=== PATIENT | female | born 1935 | race Caucasian/White ===

== ENCOUNTER 2020-02-18 13:40 | Outpatient (CLI) | payer MEDICARE, MEDICAID, SELFPAY ==
--- NOTE | ~2020-02-18 | DEXA_ITS ---
Bone Density Report Name: Lisa Salcedo Age: 85 Sex: Female Ethnicity: White Date of : 1935 Indication: postmenopausal; prior fracture; Referring Provider: ADAM, OBEY Felix Study: Bone densitometry was performed. Exam Date: February 18, 2020 Accession number: [id number] Bone Density: Region BMD T-score Z-score Classification AP Spine (L1-L4) 0.977 -0.6 2.2 Normal Femoral Neck (Left) 0.488 -3.3 -0.8 Osteoporosis Total Hip (Left) 0.760 -1.5 0.7 Osteopenia Total Hip Bilateral Avg 0.763 -1.5 0.8 Osteopenia Femoral Neck (Right) 0.621 -2.0 0.4 Osteopenia Total Hip (Right) 0.766 -1.4 0.8 Osteopenia World Health Organization criteria for BMD impression classify patients as: Normal (T-score at or above -1.0), Osteopenia (T-score between -1.0 and -2.5), or Osteoporosis (T-score at or below -2.5). 10-year Fracture Risk: FRAX not reported because: Some T-score for Spine Total or Hip Total or Femoral Neck at or below -2.5 Clinical Information Provided by Patient: Has had a low trauma fracture Has used the following medications: Vitamin D, Calcium Patient maximum height was 59 Menopause Age: 50 No regular weight bearing exercise Onset of menses at age 15 Number of children 6 Impression: The patient has established osteoporosis, based on the Left Femoral Neck T-score and the existence of a prior fracture. The patient has risk factors, including: previous fracture. Discussion: HIGH RISK OF FRACTURE. BONE DENSITY IS UNDESIRABLY LOW AT ONE OR MORE SKELETAL SITES, CONSISTENT WITH POSTMENOPAUSAL OSTEOPOROSIS. This patient's lowest T-score, in a patient who has previously fractured, meets the World Health Organization's (WHO) criteria for severe osteoporosis. In untreated patients, the risk of osteoporotic fracture increases approximately two-fold for each 1.0 SD decrease in T-score. Low bone density is not the only risk factor for fracture; also consider factors such as patient's age, frailty or poor health, risk of falling, risk of injury, previous osteoporotic fracture, family history of osteoporosis, cigarette smoking, low body weight, etc. Not everyone with low bone mineral density has osteoporosis; osteomalacia and other metabolic bone disorders should also be considered. Patients who have osteoporosis should be evaluated for specific diseases and conditions (secondary causes) that may cause or contribute to bone loss. The [place] [employer]ocrinologists (AACE) and National Osteoporosis Foundation (NOF) recommend pharmacologic intervention for all postmenopausal women whose T-score is in this range. The patient should follow a healthful lifestyle (good nutrition with adequate calcium and vitamin D, and appropriate weight-bearing exercise). Follow-Up: Consider a repeat BMD and Vertebral Fracture Assess
--- NOTE | ~2020-02-18 | MM_ITS ---
EXAMINATION: MM screening salome BI w servando HISTORY: Screening mammogram TECHNIQUE: Craniocaudal and mediolateral oblique 3-D tomosynthesis images were obtained and synthetic 2-D images were generated. CAD analysis was submitted and interpreted. COMPARISON: No prior mammogram is available for comparison at this institution. BREAST PARENCHYMAL COMPOSITION: There are scattered areas of fibroglandular density. FINDINGS: There are benign bilateral breast calcifications. There is no evidence of suspicious mass, calcification, or architectural distortion to suggest malignancy in either breast. There has been no suspicious interval change. IMPRESSION: 1. No mammographic evidence of malignancy. 2. Recommend routine screening mammography in one year. BI-RADS Category 2: Benign finding(s). Reviewed, dictated and finalized at location A.
== END 2020-02-18 13:41 | disposition home or self-care (01) ==
LOC: ANHIMG 13:42
PROVIDERS: PCP Internal Medicine; Visit Provider Internal Medicine
DX: Z12.31 Encounter for screening mammogram for malignant neoplasm of breast (principal); Z78.0 Asymptomatic menopausal state; M85.89 Other specified disorders of bone density and structure, multiple sites; M81.0 Age-related osteoporosis without current pathological fracture
CPT/HCPCS: 77063; 77067; 77080

== ENCOUNTER 2023-04-25 16:32 | Emergency (ER) | payer MEDICARE, MEDICAID, SELFPAY ==
--- NOTE | ~2023-04-25 | XR_ITS ---
EXAMINATION: XR chest 2V DATE: 04/25/2023 17:55 INDICATION: Right-sided chest pain TECHNIQUE: frontal and lateral views of the chest were obtained. COMPARISON: None FINDINGS: Mild increased interstitial pattern in both lungs most prominent in the right upper lung zone and lef t mid to lower lung zone suggesting mild pulmonary edema. Increased airspace opacities in the right s uprahilar region, unclear whether representing from the lung or the right hilum. Calcified lingular n odule consistent with old granulomatous disease. No pleural effusion or pneumothorax. Heart size is w ithin normal limits for AP technique. Mild thoracic spondylosis. IMPRESSION: 1. . Opacities in the right suprahilar region, uncertain whether representing the lung or from the ri ght hilum with differential including pneumonia, atelectasis, malignancy or reactive lymphadenopathy. Consider further evaluation with chest CT, preferably with contrast. 2. Somewhat heterogeneous bilateral mild increased interstitial pattern consistent with mild pulmonar y edema. Reviewed, dictated and finalized at location A. IMPRESSION: 1. . Opacities in the right suprahilar region, uncertain whether representing t he lung or from the right hilum with differential including pneumonia, atelecta sis, malignancy or reactive lymphadenopathy. Consider further evaluation with c hest CT, preferably with contrast. 2. Somewhat heterogeneous bilateral mild increased interstitial pattern consist ent with mild pulmonary edema.
--- NOTE | ~2023-04-25 | CT_ITS ---
EXAMINATION: CTA chest PE protocol DATE: 04/25/2023 20:45 INDICATION: R chest pain, pleuritic TECHNIQUE: Computed tomography angiography (CTA) of the chest was performed with 100 mL Omnipaque-350 intravenous contrast timed to evaluate the pulmonary arteries. Coronal maximum intensity projection 3D-reconstructions were created by the technologist. The dose-length product (DLP) was 677.76 mGy-cm. Automated exposure control and iterative reconstruction technique were employed. COMPARISON: X-ray chest, same date. FINDINGS: Lung parenchyma and airways: Calcified left lower lobe and right middle lobe granulomas. Mosaic atten uation. Bibasilar scar/atelectasis. Pleura: Unremarkable. Thoracic inlet, axillae and chest wall: Unremarkable. Thoracic aorta: Ascending aortic ectasia. Mild arch calcification. Mediastinum: Dilated central pulmonary arteries as can be seen with pulmonary arterial hypertension. Right hilar and right paratracheal lymphadenopathy. Heart and pericardium: Cardiomegaly. Coronary artery calcifications: Moderate. Upper abdomen: Cirrhotic liver changes. Hypodense left liver lobe lesion with the suggestion of perip heral nodular enhancement that would be typical of a hemangioma. Bilateral renal atrophy. Fatty repla cement of the pancreas. Bones: No acute osseous finding. Pulmonary arteries: Study quality: Adequate. No pulmonary emboli detected. IMPRESSION: No CT evidence of acute pulmonary embolus. Mosaic attenuation which can be seen with asthma, bronchiolitis obliterans, hypersensitivity pneumoni tis, and chronic thromboembolic disease. Right hilar and mediastinal lymphadenopathy. Reviewed, dictated and finalized at location K. IMPRESSION: No CT evidence of acute pulmonary embolus. Mosaic attenuation which can be seen with asthma, bronchiolitis obliterans, hyp ersensitivity pneumonitis, and chronic thromboembolic disease. Right hilar and mediastinal lymphadenopathy.
--- NOTE | 2023-04-25 16:33 | ECG_ITS ---
Measurements Intervals [place] Rate: 79 P: 83 LA: 177 QRS: -31 QRSD: 92 T: 52 QT: 384 QTc: 442 Interpretive Statements SINUS RHYTHM LEFT AXIS DEVIATION LOW QRS VOLTAGE IN PRECORDIAL LEADS INCOMPLETE RIGHT BUNDLE BRANCH BLOCK POOR R WAVE PROGRESSION, ANTERIOR LEADS BASELINE ARTIFACT- I, II, III, AVR, AVL, AVF BORDERLINE ECG NO PREVIOUS ECG AVAILABLE FOR COMPARISON Electronically Signed On 04-25-2023 20:08:35 CDT by Deon Lucio D.O.
[2023-04-25 16:35] VITALS: BP 140/86; PULSE 82; RESP 16; TEMP 36.5; O2SAT 95
[2023-04-25 17:09] LABS: Basophils Percent Auto 0.3 % (0.2-1.2); Eosinophils Percent Auto 0.6 % (0-4.4); Hematocrit 34.4 % (37.0-47.0); Hemoglobin 10.9 g/dL (12.0-15.0); Immature Granulocyte Absolute 0.02 K/mm3 (0.00-0.031); Immature Granulocyte Percent A 0.3 % (0-0.5); Lymphocytes Percent Auto 32.6 % (18.3-44.2); Mean Corpuscular HGB Conc 31.7 g/dl (32-36); Mean Corpuscular Hemoglobin 30.8 pg (26-34); Mean Corpuscular Volume 97.2 fl (80-100); Mean Platelet Volume 12.1 fl (7.4-10.4); Monocytes Absolute Auto 0.6 K/mm3 (0.1-0.6); Neutrophils Absolute Auto 3.7 K/mm3 (1.3-6.7); Neutrophils Percent Auto 57.2 % (45.5-73.1); Platelet Count Result 156 k/mm3 (150-375); Red Blood Count 3.54 M/mm3 (4.2-5.4); Red Cell Distribution Width 14.7 % (11.5-14.5); White Blood Count 6.5 K/mm3 (4.5-10.0)
[2023-04-25 17:24] LABS: Alanine Aminotransferase 19 U/L (6-35); Albumin Level 4.2 g/dL (3.5-5.1); Alkaline Phosphatase 95 U/L (38-126); Anion Gap 8 mmol/L (8-16); Aspartate Amino Transferase 36 U/L (14-36); Bilirubin,Total 0.5 mg/dL (0.2-1.3); Blood Urea Nitrogen 29 mg/dL (7-17); Calcium 9.1 mg/dL (8.4-10.2); Carbon Dioxide 27 mmol/L (22-30); Chloride 103 mmol/L (98-107); Estimated Glomerular Filt Rate 33; Glucose 105 mg/dL (65-110); Lipase 20 U/L (23-300); Potassium 4.3 mmol/L (3.4-5.0); Prothrombin Time 14.1 Seconds (11.1-14.7); Sodium 138 mmol/L (137-145)
[2023-04-25 17:25] LABS: Partial Thromboplastin Time 28.2 SECONDS (22.3-36.8)
[2023-04-25 17:35] LABS: Troponin I < 0.012 ng/mL (0.000-0.034)
--- NOTE | 2023-04-25 20:11 | ED.CHESTPAIN ---
HPI - Chest Pain General Chief Complaint: Chest Pain Stated Complaint: cp right side Time Seen by Provider: 04/25/23 19:56 Source: patient and family Limitations: no limitations History of Present Illness HPI narrative: Patient is an 88-year-old female present to the emergency department accompanied by 2 of her daughters for right chest discomfort for the past 2 to 3 weeks. Patient describes the pain as feeling like a heartbeat, it is intermittent, worse when she coughs or sneezes or yawns, has not noticed anything making the pain better, denies radiation of the pain, denies any history of this pain in the past, notes that she tried Tums and Advil without any relief, describes the pain as mild. Patient admits to mild associated shortness of breath. Patient denies history of blood clots or lower extremity swelling. Patient denies diaphoresis, nausea, vomiting, abdominal pain, dysuria, hematuria, rash, numbness, weakness, diarrhea, melena, hematochezia. Patient denies any history of heart disease, diabetes mellitus, hypertension. Patient has she been taking her medications as prescribed. Patient admits to her urine being slightly darker as of late. Patient denies any pain currently. Related Data Allergies Allergy/AdvReac Type Severity Reaction Status Date / Time No Known Allergies Allergy Verified 04/25/23 20:43 Review of Systems Review of Systems: A 10 system review of systems was completed on the patient and is negative except for what is stated in the HPI. Nursing and ancillary documentation was reviewed. PMFSH Comments At time of signature, I have reviewed and agree with nursing past medical, surgical, social and family history unless otherwise noted. Please see the nursing chart for further information. There is no relevant family history pertinent to the presenting complaint. Exam Narrative: CONST: No acute distress. Well nourished. Obese. HENMT: Head is normocephalic and atraumatic. Tacky mucous membranes. No posterior oropharynx erythema. EYES: No conjunctival icterus, injection, or pallor. PERRL. NECK: No meningeal signs. RESP: Able to speak in full sentences. Normal respiratory effort. CTAB. CARDIO: Regular rate. Regular rhythm. 2+ DP and radial pulses bilaterally. GI: Nondistended. No tenderness to palpation. Soft. : No CVA tenderness to palpation. SKIN: No rashes or lesions noted on exposed skin. NEURO: Oriented x3. Moves all extremities. EXTREM/MSK: No pedal edema. Mild right anterolateral lateral chest wall tenderness palpation without overlying skin changes, no crepitus, no palpable deformities. PSYCH: Normal affect. Course Vital Signs Vital signs: Vital Signs Temperature 97.7 F 04/25/23 16:35 Pulse Rate 82 04/25/23 16:35 Respiratory Rate 16 04/25/23 16:35 Blood Pressure 140/86 04/25/23 16:35 Pulse Oximetry 95 04/25/23 16:35 Temperature 97.7 F 04/25/23 16:35 Pulse Rate 82 04/25/23 16:35 Respiratory Rate 16 04/25/23 16:35 Blood Pressure 140/86 04/25/23 16:35 Pulse Oximetry 95 04/25/23 16:35 MDM - Chest Pain MDM Narrative Medical decision making narrative: Patient presents with the above complaint. Initial vitals are remarkable for no significant abnormalities. Patient appears in no acute distress. Physical examination notable for as noted above. Plan discussed: Laboratory analysis, EKG, chest x-ray. Patient ordered an aspirin 325 mg p.o. and placed on cardiac monitoring. Results reviewed with family and patient. Will obtain a CTA of the chest for further evaluation of abnormal chest x-ray findings. The patient has remained stable throughout the entire ED visit. Counseled patient regarding diagnostic results and potential diagnosis. Anticipatory guidance provided. Patient instructed to follow up with PCP within 2-3 days. Patient counseled on: false reassurance from an emergency department evaluation; no current evidence of a medical emerg
[2023-04-25 20:29] LABS: Troponin I < 0.012 ng/mL (0.000-0.034)
[2023-04-25 21:10] LABS: Influenza A QL RT-PCR Negative (Negative); Influenza B QL RT-PCR Negative (Negative); SARS-CoV-2 RNA PCR Negative (Negative)
[2023-04-25 22:28] LABS: Appearance Urine Clear (Clear); Bacteria Urine None Seen /hpf; Bilirubin Urine Negative (Negative); Blood Urine Negative (Negative); Color Urine Yellow (Yellow); Glucose Urine UA Negative (Negative); Ketones Urine Negative (Negative); Leukocyte Esterase Ur 1+ LEU/UL (Negative); Need Manual Microscopic Reviewed; Nitrate Urine Negative (Negative); Non Pathogenic Casts 0-2; Protein Urine Negative (Negative); RBC Urine 0-2 /hpf (0-2); Specific Grav Ur 1.021 (1.001-1.035); Squamous Epithelial Cell Urine Occasional /hpf (Few); Urobilinogen Urine 0.2 mg/dL (<2.0); WBC Urine 0-5 /hpf
[2023-04-25 22:29] LABS: Add Urine Microscopic? YES
== END 2023-04-25 21:58 | disposition home or self-care (01) ==
PROVIDERS: Emergency Medicine; Emergency Provider Student in an Organized Health Care Education/Training Program; PCP Internal Medicine
DX: M94.0 Chondrocostal junction syndrome [Tietze] (principal); R07.89 Other chest pain; Z20.822 Contact with and (suspected) exposure to COVID-19; I45.10 Unspecified right bundle-branch block; R94.31 Abnormal electrocardiogram [ECG] [EKG]; R91.8 Other nonspecific abnormal finding of lung field
CPT/HCPCS: 36415; 71046; 71275; 80053; 81001; 83690; 84484; 85025; 85610; 85730; 87636; 93005; 99284; Q9967

== ENCOUNTER 2023-10-09 00:45 | Emergency (ER) | payer MEDICARE, MEDICAID, SELFPAY ==
[2023-10-09] VITALS (7 sets, daily range): BP systolic 142–173; BP diastolic 73–92; PULSE 51–75; RESP 12–21; TEMP 36.8; O2SAT 94–99
--- NOTE | ~2023-10-09 | CT_ITS ---
Noncontrast CT scan of the cervical spine Technique: Multiple contiguous axial [address] images of the cervical spine were obtained and rec onstructed in 2D sagittal and coronal planes on the acquisition scanner. Dose reduction technique was used on this scan by utilizing automated exposure control, adjustment of the mA and/or kV according to patient size. The dose-length product (DLP) was 405.40 mGy-cm. Clinical History: Pain Findings: No fractures or dislocations. There is mild reversal of the normal cervical lordosis. Ther e is moderate degenerative disc narrowing at C4-C5, and mild degenerative disc narrowing at C5-C6. Th ere is probable mild right neural foraminal narrowing at C2-C3, the right facet arthropathy present. There is probable bilateral neural foraminal narrowing, right worse than left, at C4-C5, with mild di sc osteophyte complex. No prevertebral soft tissue swelling. Impression: No fracture or subluxation of the cervical spine. Mild degenerative spondylosis, as above. Reviewed, dictated and finalized at [facility]. ERCIAL PORTFOLIO MANAGER Impression: No fracture or subluxation of the cervical spine. Mild degenerative spondylosis, as above.
--- NOTE | ~2023-10-09 | CT_ITS ---
CT of the Abdomen and Pelvis: Indication: Abdominal pain Technique: 2.5 mm axial scans were obtained through the abdomen and pelvis following intravenous adm inistration of 100 cc of Omnipaque 350. Dose reduction technique was used on this scan by utilizing a utomated exposure control and iterative reconstruction technique. The dose-length product (DLP) was 1 056.64 mGy-cm. Findings: Scans through the lung bases are unremarkable. Nodular contour of liver noted. Tiny gallstone present. The spleen, pancreas, and adrenal glands are within normal limits. There is mild bilateral hydronephrosis. There are atherosclerotic calcification s of the aorta. No lymphadenopathy. No bowel obstruction or bowel wall thickening. There is no evidence to suggest acute appendicitis. Images through the pelvis were performed. Urinary bladder distended, but otherwise unremarkable. 3 cm simple appearing cystic right adnexal mass present.. No ascites. Impression: Probable cirrhotic change of the liver. Cholelithiasis. Mild bilateral hydronephrosis with distended urinary bladder. 3 cm simple appearing cystic right adnexal lesion. Annual follow-up ultrasound advised. Reviewed, dictated and finalized at location M. THERAPIST Impression: Probable cirrhotic change of the liver. Cholelithiasis. Mild bilateral hydronephrosis with distended urinary bladder. 3 cm simple appearing cystic right adnexal lesion. Annual follow-up ultrasound advised.
--- NOTE | ~2023-10-09 | CT_ITS ---
Non-contrast Head CT History: Headache Technique: Axial non-contrast imaging of the brain was performed. Dose reduction technique was used on this scan by utilizing automated exposure control and iterative reconstruction technique. The dose -length product (DLP) was 605.33 mGy-cm. Findings: There is no evidence of intracranial hemorrhage, mass lesion, or acute infarct. Brain par enchyma appears normal. The ventricles and subarachnoid spaces are normal in size. The calvarium ap pears normal. The visualized paranasal sinuses and mastoid air cells are clear. Impression: No significant abnormality seen. Reviewed, dictated and finalized at location . ICIAN EXTENDER Impression: No significant abnormality seen.
[2023-10-09 06:17] LABS: Basophils Percent Auto 0.3 % (0.2-1.2); Eosinophils Absolute Auto 0.2 K/mm3 (0-0.3); Eosinophils Percent Auto 5.5 % (0-4.4); Hematocrit 31.5 % (37.0-47.0); Hemoglobin 9.8 g/dL (12.0-15.0); Lymphocytes Absolute Auto 1.69 K/mm3 (0.9-3.2); Lymphocytes Percent Auto 42.4 % (18.3-44.2); Mean Corpuscular HGB Conc 31.1 g/dl (32-36); Mean Corpuscular Hemoglobin 31.3 pg (26-34); Mean Corpuscular Volume 100.6 fl (80-100); Monocytes Absolute Auto 0.4 K/mm3 (0.1-0.6); Neutrophils Absolute Auto 1.7 K/mm3 (1.3-6.7); Neutrophils Percent Auto 41.8 % (45.5-73.1); Platelet Count Result 141 k/mm3 (150-375); Red Blood Count 3.13 M/mm3 (4.2-5.4); Red Cell Distribution Width 16.7 % (11.5-14.5)
[2023-10-09 06:28] LABS: Appearance Urine Clear (Clear); Bacteria Urine None Seen /hpf; Bilirubin Urine Negative (Negative); Blood Urine Negative (Negative); Color Urine Yellow (Yellow); Glucose Urine UA Negative (Negative); Ketones Urine Negative (Negative); Leukocyte Esterase Ur Trace LEU/UL (Negative); Need Manual Microscopic Reviewed; Nitrate Urine Negative (Negative); Non Pathogenic Casts 0-2; Protein Urine Negative (Negative); RBC Urine 0-2 /hpf (0-2); Specific Grav Ur 1.005 (1.001-1.035); Squamous Epithelial Cell Urine None seen /hpf (Few); Urobilinogen Urine 0.2 mg/dL (<2.0); WBC Urine 0-5 /hpf
[2023-10-09 06:29] LABS: Add Urine Microscopic? YES
[2023-10-09 06:31] LABS: Alanine Aminotransferase 28 U/L (6-35); Albumin Level 3.7 g/dL (3.5-5.1); Alkaline Phosphatase 78 U/L (38-126); Anion Gap 5 mmol/L (8-16); Aspartate Amino Transferase 57 U/L (14-36); Bilirubin,Total 0.8 mg/dL (0.2-1.3); Blood Urea Nitrogen 17 mg/dL (7-17); Calcium 8.5 mg/dL (8.4-10.2); Carbon Dioxide 26 mmol/L (22-30); Chloride 106 mmol/L (98-107); Estimated Glomerular Filt Rate 31; Glucose 87 mg/dL (65-110); Sodium 137 mmol/L (137-145)
[2023-10-09 06:41] LABS: Troponin I < 0.012 ng/mL (0.000-0.034)
--- NOTE | 2023-10-09 06:54 | ED.GENADULT ---
HPI - General Adult General Chief complaint: Unspecified <Shawn Winchester MD - Last Filed: 10/10/23 07:27> Stated complaint: depression/not eating/not sleeping/ neck head pain <Shawn Winchester MD - Last Filed: 10/10/23 07:27> Time Seen by Provider: 10/09/23 05:06 <Shawn Winchester MD - Last Filed: 10/10/23 07:27> History of Present Illness HPI narrative: 88-year-old female presents to the emergency department for evaluation of multiple complaints including headache, intermittent neck pain, abdominal pain and urinary symptoms. Patient states she has had a lot of stress over the course of the last month after losing her family pet. The patient suspects that her neck pain and headache is secondary to sleeping strangely. Family states that the patient has had a slightly different speech pattern than normal over the last few weeks but states that it is currently back to his normal baseline. Patient denies any associated numbness or weakness. Patient denies any falls or injuries. Patient did have an episode of incontinence and a urinary tract infection was suspected. <Shawn Winchester MD - Last Filed: 10/10/23 07:27> Related Data Allergies/adverse reactions: Allergies Allergy/AdvReac Type Severity Reaction Status Date / Time No Known Allergies Allergy Verified 04/25/23 20:43 <Shawn Winchester MD - Last Filed: 10/10/23 07:27> Review of Systems Review of Systems: All systems reviewed & are unremarkable except as noted in HPI and below <Shawn Winchester MD - Last Filed: 10/10/23 07:27> Exam Narrative: APPEARANCE: Well appearing, no pain, no distress, well-nourished. HEAD: normocephalic, atraumatic. EYES: PERRLA/EOMI, conjunctivae clear. NOSE: Normal no drainage EARS:TMS clear with good light reflex. THROAT: Pharynx clear, no exudate. NECK: Supple. No adenopathy, no masses. RESPIRATORY: Airway patent, respirations nonlabored. Clear to auscultation bilaterally, no rales, rhonchi, wheezing. CARDIOVASCULAR: Regular rate and rhythm without murmurs rubs or gallops. ABDOMINAL: Soft, nontender, nondistended, normal bowel sounds MUSCULOSKELETAL: Moves all extremities. Strength/ROM intact, No edema, No calf tenderness. NEURO: Alert. Cranial nerves II through XII intact. Grossly intact <Shawn Winchester MD - Last Filed: 10/10/23 07:27> Course Course Emergency Course: 88-year-old female presented to the ED for evaluation of multiple complaints including urinary incontinence headache neck pain and abdominal pain. patient is afebrile with no leukocytosis and a stable hemoglobin of 9.8. Patient's initial troponin was negative and UA shows no evidence of infection. Imaging was negative and patient was negative for influenza RSV in for COVID. Delta troponin is pending at time of sign-out. <Shawn Winchester MD - Last Filed: 10/10/23 07:27> Reevaluation(s) Reevaluation #1: I assumed care of this patient at shift change with pending labs and disposition. I have re-examined the patient she is comfortably resting. I discussed lab work, CT findings with the patient and the daughter. Advised her to continue home medications recommended her to follow up with the primary doctor. <Rolando Hatch MD - Last Filed: 10/09/23 10:20> Vital Signs Vital signs: Vital Signs Temperature 98.2 F 10/09/23 00:57 Pulse Rate 75 10/09/23 00:57 Respiratory Rate 15 10/09/23 00:57 Blood Pressure 149/92 H 10/09/23 00:57 Pulse Oximetry 94 10/09/23 00:57 Oxygen Delivery Room Air 10/09/23 00:57 Temperature 98.2 F 10/09/23 00:57 Pulse Rate 68 10/09/23 10:37 Respiratory Rate 16 10/09/23 10:37 Blood Pressure 142/84 H 10/09/23 10:37 Pulse Oximetry 99 10/09/23 10:37 Oxygen Delivery Room Air 10/09/23 00:57 <Shawn Winchester MD - Last Filed: 10/10/23 07:27> Vital Signs Temperature 98.2 F 10/09/23 00:57 Pulse Rate 75 10/09/23 00:57 Respiratory Rate 1
[2023-10-09 06:55] LABS: Influenza A QL RT-PCR Negative (Negative); Influenza B QL RT-PCR Negative (Negative); RSV RNA, RT-PCR Negative (Negative); SARS-CoV-2 RNA PCR Negative (Negative)
--- NOTE | 2023-10-09 09:15 | ECG_ITS ---
Measurements Intervals [place] Rate: 50 P: 63 ME: 214 QRS: -11 QRSD: 93 T: 60 QT: 451 QTc: 415 Interpretive Statements SINUS BRADYCARDIA WITH FIRST DEGREE AV BLOCK LOW QRS VOLTAGE IN PRECORDIAL LEADS [QRS DEFLECTION < 1.0 mV IN CHEST LEADS] COMPARED TO ECG 04/25/2023 16:38:58 SINUS BRADYCARDIA NOW PRESENT FIRST DEGREE AV BLOCK NOW PRESENT Electronically Signed On 10-09-2023 15:36:39 ALIGNER TYPEWRITER by Moose Barajas M.D.
[2023-10-09 09:53] LABS: Troponin I < 0.012 ng/mL (0.000-0.034)
== END 2023-10-09 10:38 | disposition home or self-care (01) ==
PROVIDERS: Emergency Provider Emergency Medicine; PCP Internal Medicine
DX: R53.1 Weakness (principal); M54.2 Cervicalgia; M47.812 Spondylosis without myelopathy or radiculopathy, cervical region; R00.1 Bradycardia, unspecified; I44.0 Atrioventricular block, first degree
CPT/HCPCS: 36415; 70450; 72125; 74177; 80053; 81001; 84484; 85025; 87637; 93005; 99284; Q9967